=== PATIENT | male | born 1955 | race Caucasian/White ===

== ENCOUNTER 2024-12-19 14:14 | Emergency (ER) | payer MEDICARE, SELFPAY ==
[2024-12-19] VITALS (7 sets, daily range): BP systolic 109–136; BP diastolic 59–81; PULSE 63–81; RESP 18–23; TEMP 36.6; O2SAT 96–100
--- NOTE | ~2024-12-19 | XR_ITS ---
EXAMINATION: XR chest 2V, 12/19/2024 14:45 CDT HISTORY: chest heaviness COMPARISON: No comparisons available. Technique: 2 views obtained. Findings: The lungs are clear, no effusion. No pneumothorax. Heart is normal size. Mediastinal and hilar contours are within normal limits. Bony thorax no acute abnormality. Impression: No acute cardiopulmonary abnormality. Reviewed, dictated and finalized at location A. Impression: No acute cardiopulmonary abnormality.
--- NOTE | 2024-12-19 14:17 | ECG_ITS ---
Test Date: 2024-12-19 14:19:48 Measurements Intervals [place] Rate: 79 P: 49 UT: 165 QRS: 21 QRSD: 104 T: 50 QT: 367 QTc: 422 Interpretive Statements SINUS RHYTHM NONSPECIFIC T-WAVE ABNORMALITY BORDERLINE ECG No previous ECG available for comparison Electronically Signed On 12-20-2024 08:15:40 CDT by Jesus Fagan M.D.
[2024-12-19 14:30] LABS: Hematocrit 39.1 % (42.0-52.0); Hemoglobin 13.0 g/dL (14.0-18.0); Immature Granulocyte Percent A 0.2 % (0-0.5); Lymphocytes Absolute Auto 2.47 K/mm3 (0.9-3.2); Mean Corpuscular HGB Conc 33.2 g/dl (32-36); Mean Corpuscular Hemoglobin 29.7 pg (26-34); Mean Corpuscular Volume 89.3 fl (80-100); Nucleated Red Blood Cells Absolute Auto 0.000 K/mm3 (0.0-0.012); Nucleated Red Blood Cells Perc 0.0 % (0.0-0.2); Platelet Count Result 286 k/mm3 (150-375); Red Blood Count 4.38 M/mm3 (4.6-6.20); White Blood Count 4.5 K/mm3 (4.5-10.0)
[2024-12-19 14:42] LABS: INR 1.1; Partial Thromboplastin Time 23.8 Seconds (22.3-36.8); Prothrombin Time 13.7 Seconds (11.1-14.7)
[2024-12-19 14:47] LABS: Alanine Aminotransferase 30 U/L (6-50); Albumin Level 3.9 g/dL (3.5-5.1); Alkaline Phosphatase 111 U/L (38-126); Anion Gap 8 mmol/L (4-12); Aspartate Amino Transferase 29 U/L (17-59); Bilirubin,Total 0.7 mg/dL (0.2-1.3); Blood Urea Nitrogen 14 mg/dL (9-20); Calcium 8.9 mg/dL (8.4-10.2); Carbon Dioxide 24 mmol/L (22-30); Chloride 105 mmol/L (98-107); Estimated CRCL calculation 115 ml/min; Estimated Glomerular Filt Rate > 60; Glucose 110 mg/dL (65-110); Lipase 57 U/L (23-300); Potassium 3.9 mmol/L (3.4-5.0); Sodium 137 mmol/L (137-145); Total Protein 7.5 g/dL (6.3-8.2)
[2024-12-19 14:53] LABS: Troponin I < 0.012 ng/mL (0.000-0.034)
[2024-12-19] MEDS: ASPIRIN 81 MG CHEWABLE TABLET 324 MG (17:55)
--- NOTE | 2024-12-19 17:55 | ECG_ITS ---
Test Date: 2024-12-19 18:05:02 Measurements Intervals [place] Rate: 66 P: 27 MA: 148 QRS: 17 QRSD: 106 T: 30 QT: 411 QTc: 431 Interpretive Statements SINUS RHYTHM WITHIN NORMAL LIMITS Compared to ECG 12/19/2024 14:19:48 NO SIGNIFICANT CHANGE Electronically Signed On 12-20-2024 08:20:10 CDT by Jesus Fagan M.D.
[2024-12-19 18:21] LABS: Troponin I < 0.012 ng/mL (0.000-0.034)
[2024-12-19] MEDS: LACTATED RINGERS 1,000 ML 999 ML IV CONT (18:41)
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
== END 2024-12-19 22:00 | disposition home or self-care (01) ==
PROVIDERS: Emergency Provider Emergency Medicine; PCP Family Medicine
DX: I95.1 Orthostatic hypotension (principal); R94.31 Abnormal electrocardiogram [ECG] [EKG]
CPT/HCPCS: 36415; 71046; 80053; 83690; 84484; 85025; 85610; 85730; 93005; 96360; 99284; A9270; J7120